=== PATIENT | female | born 1960 | race Caucasian/White ===

== ENCOUNTER 2016-10-09 19:12 | Inpatient (IN) | payer OTHER ==
[~2016-10-09] VITALS: Ht 157.5 cm; Wt 79.4 kg
--- NOTE | ~2016-10-09 | O ---
[place], [place] OPERATIVE NOTE [id number] UNIT #: [id number] ROOM: [facility] DOCTOR: SIDDHARTH MOSLEY MD BIRTHDATE: [birth year] DOS: 10/11/2016 PREOPERATIVE DIAGNOSIS: Right posterior neck abscess. POSTOPERATIVE DIAGNOSIS: Right posterior neck abscess. PROCEDURE: Incision and drainage, neck abscess. SURGEON: Siddharth Mosley MD. ANESTHESIA: General endotracheal. ESTIMATED BLOOD LOSS: 25 mL. PACKING: Iodoform gauze. The patient is a 55-year-old white female diabetic with diabetic ketoacidosis who was admitted with a right neck abscess yesterday. She was being taken to the operating room for incision and drainage of a right posterior neck abscess. OPERATIVE FINDINGS AND PROCEDURE: Following induction of general endotracheal anesthesia, the patient was positioned supine on the OR table and prepped and draped in a standard sterile fashion. She has 7-8 cm abscess in the right posterior neck. An incision of approximately 4 cm was made overlying the abscess mucopurulent material was encountered. Cultures were obtained. Blunt dissection was used to explore the abscess cavity. It was suctioned and copiously irrigated with Ancef infused saline. There was no significant bleeding. Estimated blood loss was only 25 mL. The wound was packed with iodoform gauze and a sterile dressing was applied to the neck. At the end of the case, all instrument and sponge counts were correct. SIDDHARTH MOSLEY MD CM:OPRECORD:OPERATIVE NOTE 1201 [id number] SIDDHARTH MOSLEY MD 10/11/16 1242 interface
--- NOTE | ~2016-10-09 | PR ---
[place], [place] PROGRESS NOTE [id number] UNIT #: [id number] ROOM: 409 DOCTOR: KATHY SANTOS MD BIRTHDATE: [birth year] DOS: 10/13/2016 This patient was seen 48 hours status post incision and drainage of a large right posterior neck abscess. She remains clinically stable. Her wound was packed with Xeroform gauze. PHYSICAL EXAMINATION: VITAL SIGNS: Temperature 97.6, pulse 75, respiratory rate 22, blood pressure 140/58. GENERAL: The patient is awake, alert and oriented x 3. NECK: Shows some serosanguineous drainage into the dressing. The dressing was taken down and the Xeroform gauze packing was removed. The patient does have a large cavity where the abscess was present. IMPRESSION: Stable status post incision and drainage of right neck abscess. RECOMMENDATIONS: Wound care consult. At this point, recommend wet to dry dressing changes every 8 hours. KATHY SANTOS MD CM:PNTRANS 1221 [id number] KATHY SANTOS MD 10/13/16 1250 interface
--- NOTE | ~2016-10-09 | PR ---
[place], [place] PROGRESS NOTE [id number] UN[facility] #: [id number] ROOM: 409 DOCTOR: BUZZ HAJI,ARIES VALDIVIA) BIRTHDATE: [birth year] DOS: UPDATE NOTE At the present time, this patient is clearly competent to make informed healthcare decisions. According to the patient and also her medical chart, she was delirious upon entering the hospital. At the present time, her mental status has improved significantly and she is competent to make informed healthcare decisions. DIAGNOSIS: Delirium, not otherwise specified. Thank you very much for this consult. ARIES GERBER ED.D CM:RIKI 00 [id number] ARIES GERBER ED.D (BOB) 10/13/16 1734 interface
--- NOTE | ~2016-10-09 | CON ---
[place], [place] REPORT OF CONSULTATION NAME: [id number] UNIT #: [id number] ROOM: 409 DOCTOR: ARIES GERBER ED.D (SHEILA) BIRTHDATE: [birth year] DOS: HISTORY OF PRESENT ILLNESS: The patient is a 55-year-old female referred by the hospitalist for competency evaluation. At the present time, this patient is a patient at [facility] in the Intensive Care Unit. I was unable to interview this patient because she was in surgery when I attempted to evaluate her. MEDICAL HISTORY: Her medical history is pertinent for abscesses of neck, insulin-dependent diabetes mellitus, diabetic ketoacidosis, head lice, scabies and seizure disorder. SOCIAL HISTORY: According to her history, she does smoke cigarettes, but does not drink any alcoholic beverages. MEDICATIONS: Her medications include vitamin D, Neurontin, insulin, Synthroid, Tradjenta, Claritin, Glucophage, Trileptal and pravastatin. I spoke with the attending nurse in the Intensive Care Unit, who is caring for this patient. According to nursing staff, the patient requested her daughter make decisions for her regarding any type of surgery. The daughter did approve her surgery to address her abscess on her neck and gave consent. I will reevaluate this patient next week; however, since she already wanted her daughter to make informed healthcare decisions most likely that will be her decision, but I will follow up on this case. According to the chart and nursing staff, this patient was in quite compromised physical condition and there were concerns about her home situation. Case management will be following up on her home situation. DIAGNOSES: 1. Mild neurocognitive disorder. 2. Depressive disorder, not otherwise specified. Thank you very much for this consultation. ARIES GERBER ED.D CM:CONSTR:REPORT OF CONSULTATION 1341 10/12/16 1129 interface
--- NOTE | ~2016-10-09 | CON ---
[place], [place] REPORT OF CONSULTATION NAME: SOUMYA TONEY UNIT #: [id number] [facility] DOCTOR: CHANTALE SOSA MD BIRTHDATE: [birth year] DOS: 10/15/2016 HISTORY OF PRESENT ILLNESS: This 56-year-old female who was admitted to the hospital with multiple issues including DKA and cellulitis to the lateral posterior right neck. I was called to see her because of unresponsive state. She had had episodic ventricular tachycardia, and it was thought that she had had a cardiac arrest. The nurse reported that she heard the patient went into the room to find her sitting on the commode extended and convulsion. The nurse called for assistance, and the patient was lowered to the floor to avoid injury. The seizure activity had just stopped when I arrived to evaluate the patient. She was somnolent, but opened her eyes to name. The nursing staff and the respiratory therapist were able to roll the patient on to a sheet and lift her on to the bed. She had been incontinent of urine. She was unable to provide any information, but stated that she was all right. The seizure activity lasted approximately 3 minutes per the nurse. She does have a history of seizures, but there was no documented seizure medication. PHYSICAL EXAMINATION: GENERAL: On examination, she was somnolent, arouse easily and was cooperative. There were no palpable areas of tenderness or swelling to the head. No rigidity in the neck. No evidence of tongue bite, and no facial erythema or contusions, and there was an area of cellulitis and abscess on the right posterior lateral neck. CHEST: Symmetrical, nontender. LUNGS: Clear to auscultation and percussion. CARDIOVASCULAR: Tachycardic. No murmurs, gallops, rubs or clicks appreciated. ABDOMEN: Slightly rounded, soft, nontender. Bowel sounds present in all 4 quadrants. No areas of ecchymosis. No organomegaly. EXTREMITIES: No deformities. No areas of contusion and no edema. NEUROLOGICAL: The patient was awake, answers simple questions, and there were no lateralizing neurological signs. ASSESSMENT: Resident physician arrived and I advised CT scan of the head and neck because of possibility of injury along with a 12-lead EKG. The 12-lead EKG showed a sinus tachycardia, isolated PAC. No evidence for acute injury. No malignant rhythms. In further investigating, the patient did take Keppra at some point, but it did not appear that she has been receiving Keppra here in the hospital. The resident will clarify that with the record. No further intervention was required by me because the resident attending staff is here and will proceed to transfer the patient to the ICU. CT scan of the head and neck, chest x-ray had already been ordered, and the resident staffs have assumed care. They will notify Dr. Felix, the patient's attending physician, of the incident. I did evaluate the patient after I completed documentation. She was awake, was amnesic of the event, but appeared to be more alert and was more cooperative. The neurological exam except for continued postictal state was nonlateralizing, and there was no further seizure activity. DIAGNOSIS: Seizure. [place], [place] REPORT OF CONSULTATION NAME: SOUMYA TONEY UNIT #: [id number] ROOM: [facility] DOCTOR: CHANTALE SOSA MD BIRTHDATE: [birth year] CHANTALE SOSA MD CM:CONSTR:REPORT OF CONSULTATION 0529 10/15/16 2007 interface
--- NOTE | ~2016-10-09 | CON ---
[place], [place] REPORT OF CONSULTATION NAME: SOUMYA TONEY UNIT #: [id number] ROOM: [facility] DOCTOR: TOM CHUNGKATHY BIRTHDATE: [birth year] DOS: 10/10/2016 ADMITTING PHYSICIAN: Dr. Rebekah Felix. PRIMARY CARE PHYSICIAN: Dr. Sepulveda. CHIEF COMPLAINT: Right neck abscess. HISTORY: The patient is a 55-year-old white female diabetic who was evaluated in the Emergency Department at our hospital with a draining abscesses and cellulitis of the neck. The patient has had redness and swelling for the past week. The patient has been noted to be in diabetic ketoacidosis. She has had some mental status changes. Review of medical records shows that her daughter was called. She stated that her mother was stubborn. The patient has been admitted to the intensive care area, where she has been started on IV Zosyn and IV vancomycin. She is currently on an insulin drip. She has not been responding appropriately. There are reports that she was defecating in her house and stepping in her feces. In addition, the patient was noted to have significant head lice. She has been treated topically in the ICU for that problem. PAST MEDICAL HISTORY: Includes history of seizure, history of encephalopathy, diabetes mellitus, history of sepsis, hirsutism, gait abnormality. PAST SURGICAL HISTORY: Includes history of cholecystectomy. SOCIAL HISTORY: The patient does not drink alcohol or use illicit drugs. FAMILY HISTORY: Unknown. CURRENT MEDICATIONS: Include the following permethrin, Protonix, lorazepam, Geodon, vancomycin, Zosyn, Lovenox, insulin, potassium, Zofran, magnesium, Tylenol. ALLERGIES: The patient has no known drug allergies. RADIOGRAPHIC STUDIES: The patient did have a CT scan of the soft tissues of the neck performed. The scan showed right neck subcutaneous edema with local inflammatory mass primarily involving the right posterior neck. There is suggestion of phlegmon formation. There was mild edema that extends into the deep subcutaneous soft tissues of the right posterior neck. PHYSICAL EXAMINATION: VITAL SIGNS: The patient has temperature of 99.8, tympanic, pulse rate 120, respiratory rate 24, blood pressure 123/59. GENERAL: The patient was awake, while examined in the ICU, very poorly groomed hair, covered with lice nits. NECK: Reveals a right posterior triangle draining abscess. There is an area of 6-7 cm of induration and swelling, which is firm and very tender. The [place], [place] REPORT OF CONSULTATION NAME: SOUMYA TONEY UNIT #: [id number] ROOM: [facility] DOCTOR: KATHY SANTOS MD BIRTHDATE: [birth year] cavity and oropharynx is unremarkable. LABORATORY STUDIES: White blood cell count 14.8, hemoglobin 14, PT 10.4. Glucose 417. IMPRESSION: 1. Severe right posterior triangle cervical abscess with drainage and cellulitis. 2. Diabetic ketoacidosis. 3. Head lice. PLAN: The patient is currently being stabilized in the ICU. Her osmolar gap is closing. She is on an insulin drip. She is on appropriate antibiotic therapy with Zosyn and vancomycin at this time. Cultures are pending. In addition, a Psychiatry consult is pending. We discussed the case with the operating room and the ICU nurses. Plan is to take the patient to the operating room tomorrow morning after further stabilization in the ICU. She will undergo exploration of the wound with incision and drainage. KATHY SANTOS MD CM:CONSTR:REPORT OF CONSULTATION 180 10/10/16 184 interface
--- NOTE | ~2016-10-09 | PR ---
[employer] [employer], [place] PROGRESS NOTE NAME: SOUMYA TONEY [facility] #: [id number] UNIT #: [id number] ROOM: 402 DOCTOR: HOWARD PRICE MD BIRTHDATE: [birth year] DOS: 10/14/2016 SUBJECTIVE: Soumya Toney was seen at her bedside today on 10/13/2016 for followup of atrial and ventricular arrhythmias. She is a 56-year-old woman with a history of diabetes and seizure disorder, which she believes has been present for at least five years. She presented with an abscess in her neck. This was treated with incision and drainage on 10/11/2016. She was also on diabetic ketoacidosis on admission and therefore was observed in the Intensive Care Unit on the evening of 10/11/2016. She did have several episodes of nonsustained wide complex tachycardia. The monitor strips did demonstrate monomorphic ventricular tachycardia. Her potassium was 3.2 and magnesium was 1.6. These were replaced and her arrhythmias improved. She was asymptomatic. Since yesterday, she has had one more 5 beat run of wide complex tachycardia at 10:00 this morning without symptoms. She did have a short run of supraventricular tachycardia last evening. She denies any chest pain or palpitations. She denies orthopnea or PND. She denies any fevers or chills. PHYSICAL EXAMINATION: VITAL SIGNS: On exam today, her pulse is 77 and regular, blood pressure is 116/69. She is afebrile. She weighs 79.4 kilograms with a body mass index of 32. NECK: Supple. She does have a bandage over her right posterior neck. Carotids are full. LUNGS: Respirations are unlabored. Her chest is clear to auscultation and percussion. HEART: Has a regular rhythm with a fourth heart sound, but no third heart sound or murmur. The PMI is not displaced. ABDOMEN: Obese, but otherwise benign. EXTREMITIES: Showed no edema. LABORATORY DATA: White count today is 5800, hemoglobin 11.4. Sodium 141, potassium 3.9, BUN 6, creatinine 0.43, calcium is 8.5, magnesium is on the lower side of normal at 1.7. Her bacterial cultures are positive for Staphylococcus aureus. This is from her abscess. IMPRESSION: 1. Nonsustained ventricular tachycardia, most likely this was from her electrolyte abnormalities and diabetic ketoacidosis. She has no signs of acute myocardial infarction or structural heart disease. 2. Short run of SVT. 3. Type 2 diabetes mellitus. 4. Cellulitis of the right neck growing Staphylococcus aureus. 5. The patient reportedly had head lice on admission. 6. History of seizure disorder. PLAN: We will check an echocardiogram within the next 24 hours for left [employer], [place] PROGRESS NOTE NAME: SOUMYA TONEY UNIT #: [id number] ROOM: 402 DOCTOR: DEE CHUNG,HOWARD BIRTHDATE: [birth year] ventricular function. I have also added oral magnesium as a supplement. She does have several risk factors for coronary artery disease and since she is having recurrent albeit brief episodes of arrhythmia, we likely will do a pharmacologic stress test once her other medical problems have been corrected. I thank the hospitalist physicians for asking our advice regarding her care. HOWARD PRICE MD CM:PNTRANS 1647 [id number] HOWARD PRICE MD 11/20/16 1513 interface
--- NOTE | ~2016-10-09 | PR ---
[place], [place] PROGRESS NOTE NAME: SOUMYA TONEY [facility] #: [id number] UNIT #: [id number] ROOM: [facility] DOCTOR: HOWARD PRICE MD BIRTHDATE: [birth year] DOS: 10/15/2016 CARDIOLOGY PROGRESS NOTE SUBJECTIVE: The patient was seen at her bedside in the intensive care unit today, 10/15/2016. She is a 56-year-old woman who presented to the hospital with a right neck abscess and diabetic ketoacidosis associated with electrolyte abnormalities. Since she has been in the hospital, she has had runs of nonsustained ventricular tachycardia. An echocardiogram done on 10/14/2016 showed normal left ventricular size, wall thickening and systolic function with normal diastolic function. There were no valve abnormalities present. The study was felt to be entirely normal. The patient was scheduled to have a pharmacologic stress test this morning in order to make sure she did not have an ischemic substrate for her nonsustained ventricular tachycardia. She did, however, develop a seizure and was transferred to the Intensive Care Unit. At present time, she seems somewhat confused, but is moving all extremities. She has no recollection of the event. She complains of feeling "sore all over". I reviewed the monitor strips that were available. Unfortunately, the strips from the time of the seizure and the time leading up to the seizure are not currently available in the monitor computer; however, according to verbal reports from the nurses and the strips that are available, she only had sinus rhythm and sinus tachycardia prior to the seizure. She did not have sustained rapid ventricular fibrillation or ventricular tachycardia prior to the seizure event. PHYSICAL EXAMINATION: VITAL SIGNS: Today, her pulse is 84 and regular, blood pressure 149/72. She is afebrile. She weighs 79.4 kilograms with a body mass index of 32. NECK: Supple. She does have a dressing in place. LUNGS: Respirations are unlabored. Her chest is clear to auscultation and percussion. She does have some anterior chest wall tenderness. There is no presacral edema. HEART: Regular rhythm with a soft S4 gallop, but no S3 or significant murmur. ABDOMEN: Soft and normally active. EXTREMITIES: Showed no edema. Her right leg seems to be foreshortened and externally rotated, but she states it is not tender. LABORATORY DATA: Hemoglobin today is 14 with a hematocrit of 43.6. There is 7700 white cells and 350,000 platelets present. INR is 1.0. Troponin level this morning was normal. Electrolytes this morning showed a sodium of 139, potassium 4.2, chloride 102, CO2 of 21, BUN 9 and creatinine 0.67. Sugar was 282. IMPRESSION: 1. Nonsustained ventricular tachycardia. Workup is still in progress. The patient does not have obvious structural disease; however, an ischemia substrate for her ventricular tachycardia has not yet been ruled out. 2. Type 2 diabetes mellitus. 3. Cellulitis of the right neck, which is growing Staphylococcus aureus. [place], [place] PROGRESS NOTE NAME: SOUMYA TONEY UNIT #: [id number] ROOM: [facility] DOCTOR: HOWARD PRICE MD BIRTHDATE: [birth year] 4. Diabetic ketoacidosis. 5. History of seizure disorder with seizure this morning. PLAN: The patient has been evaluated in the Intensive Care Unit. We will continue to follow her with her other physicians. Effort should be made to continue to manage her electrolytes. If there are no more problems, we will plan on doing her pharmacologic stress test on the morning of 10/16/2016. I thank the hospitalist physicians for asking our advice regarding her care. HOWARD PRICE MD CM:PNTRANS [id number] [id number] HOWARD PRICE MD 10/15/16 6607 interface
--- NOTE | ~2016-10-09 | O ---
[place], [place] OPERATIVE NOTE NAME: SOUMYA TONEY UNIT #: [id number] ROOM: [facility] DOCTOR: RYLEY CHUNG,RAMON BIRTHDATE: [birth year] DOS: PROCEDURE: Today's procedure part of investigation of GI bleed is panendoscopy. PREMEDICATION: Versed and Diprivan. SCOPE: Olympus forward-viewing gastroscope Q10 video. REPORT: After putting the patient in supine position, scope was introduced. Thereafter, under direct visualization, I advanced through the length of esophagus into gastric pouch into duodenal bulb. There is no evidence of ulceration, hemangioma, angiodysplastic lesions or any source of bleeding in upper GI tract. Scope was withdrawn. No biopsies obtained. Simultaneously, deep rectal examination while the patient was sedated was done. There was no evidence of melanotic stool. The patient tolerated the procedure well. IMPRESSION: Gastritis. PLAN AND DISCUSSION: Protonix p.o. 40 mg daily would suffice. Regular diet would suffice. Status post right neck abscess drainage and antibiotic management and clinical reassessment. Consultation in detail has been already dictated. RAMON HEDRICK MD CM:OPRECORD:OPERATIVE NOTE 1221 0826 RAMON HEDRICK MD 10/12/16 0825 interface
--- NOTE | ~2016-10-09 | CON ---
[place], [place] REPORT OF CONSULTATION NAME: SOUMYA TONEY UNIT #: [id number] ROOM: [facility] DOCTOR: SELWYN BrownleeNENA BIRTHDATE: [birth year] DOS: 10/14/2016 WOUND CARE CONSULTATION HISTORY OF PRESENT ILLNESS: This is a 56-year-old female with diabetes who was admitted to the Emergency Room Department for a draining abscess of the right neck. Apparently, she was noted to be in DKA upon admission with some mental status changes. She was started empirically on IV Zosyn and vancomycin as well as an insulin drip for her DKA. She was noted to have a history of some mental status changes, not behaving appropriately. There were reports that her home situation was unhygienic. Apparently, there are reports that she was defecating in her house and stepping in feces. She was also noted to have severe significant problem with head lice as well. She was seen by ENT and underwent I and D on the . The neck abscess was located in the right posterior triangle. The wound was noted to be quite large after incision and drainage. Therefore, Wound Care has been consulted. She also had problems with nonsustained ventricular tachycardia during her hospitalization here, which is being managed by Cardiology. PAST MEDICAL HISTORY: Significant for type 2 diabetes, on insulin, history of a seizure disorder, history of cholecystectomy, hypothyroidism, status post repair of right leg fracture about a year ago with open reduction and internal fixation. Past medical history also include DKA, head lice, scabies, and seizure disorder. SOCIAL HISTORY: She smokes cigarettes, but does not drink alcohol. She lives with her daughter. ALLERGIES: No known drug allergies. CURRENT MEDICATIONS: Are as follows, mag oxide 400 p.o. b.i.d., Percocet q. 6 p.r.n., Naprosyn 375 t.i.d., morphine 2 mg IV q. 6 hours p.r.n., vancomycin 1250 per pharmacy dosing, Benadryl 25 q. 6 hours p.r.n., Humalog sliding scale, Pravachol 10 mg p.o. daily, Claritin 10 mg p.o. daily, vitamin D 50,000 units daily, levothyroxine 25 daily plus 112 mcg daily, Neurontin 100 t.i.d., pantoprazole 40 mg IV daily, enoxaparin 40 daily, Zofran 4 mg p.r.n. REVIEW OF SYSTEMS: Currently, she just complains of discomfort near the wound whenever the dressing is being changed. She tends to want to reach her hand near the dressing site. She does have a bordered gauze holding some packing in place at this time. There is a lot of gaps with the adhesive around the area and it is also attached to her hair. She offers no specific complaints regarding chest pain, shortness of breath, fevers or chills, nausea or vomiting or diarrhea. PHYSICAL EXAMINATION: VITAL SIGNS: She is afebrile, pulse is 80, respirations 18, blood pressure is 122/57. She is in no acute distress. The wound is quite large, gaping wound, approximately 7 to 8 cm diagonal in length with approximately 4 to 5 cm in width and approximately 2 to 3 cm in depth. There is some undermining at the [address] [place] [address] REPORT OF CONSULTATION NAME: SOUMYA TONEY UNIT #: [id number] ROOM: [facility] DOCTOR: NENA SAMANO M.D. BIRTHDATE: [birth year] o'clock position noted. There is exposed muscle and still some surrounding cellulitis and induration noted. The rest of her examination: LUNGS: Fairly clear. CARDIOVASCULAR: S1, S2, regular rate and rhythm. ABDOMEN: Soft. EXTREMITIES: There is no edema. LABORATORY DATA: Today show her bacterial culture grew Staph aureus that was resistant to penicillin and clindamycin. Her white count is down to 5.8. Her hemoglobin is 11.4, hematocrit is 33.7, platelets are 255. Her BUN is 6, creatinine is 0.3, glucose is 260, bicarb is 26. Albumin is low at 2.4, protein is low at 6. ASSESSMENT AND PLAN: Very large open wound of the neck secondary to an abscess with surrounding cellulitis. I would try to use a loosely packed Aquacel Ag rope for now and have it keep it covered with a bordered Optifoam. I did put a 3 x 3 foam there. I think that would fit nicely. I am concerned that since it is such a large open area that she will definitely need either home health to come in and help her or see if she is a candidate for alf. I do not think she is going to be able to manage dressings on her own at this point. I would recommend followup in the Wound Clinic once she is medically stable. NENA SAMANO MD CM:CONSTR:REPORT OF CONSULTATION 1603 10/15/16 0922 interface
--- NOTE | ~2016-10-09 | PR ---
[place], [place] PROGRESS NOTE NAME: SOUMYA TONEY [facility] #: [id number] UNIT #: [id number] ROOM: 402 DOCTOR: HOWARD PRICE MD BIRTHDATE: [birth year] DOS: 10/16/2016 CARDIOLOGY PROGRESS NOTE SUBJECTIVE: The patient was seen in the Intensive Care Unit today, 10/16/2016. She tells me that she feels well. She denies any fevers or chills. She denies any chest pain or palpitations. Her last recorded episode of ventricular tachycardia was at 1700 yesterday, 10/15/2016. The patient was scheduled to have a pharmacologic stress test today. She was very resistant to having the study done, but eventually did accept having the radioisotope injected. She was brought downstairs, but refused to have imaging performed. At that point, she demanded to be taken back upstairs and no imaging either at rest or at stress was completed. PHYSICAL EXAMINATION: VITAL SIGNS: Today, her pulse is 80 and regular, blood pressure is 130/62. She is afebrile. NECK: Supple. She has a bandage in place over her right posterior neck. LUNGS: Respirations are unlabored. Her chest is clear. HEART: Has a regular rhythm with an S4 gallop. ABDOMEN: Obese, but otherwise benign. EXTREMITIES: Showed no edema. LABORATORY DATA: White count is 8200. Sodium is 144, potassium 4.4, chloride 105, CO2 of 29, BUN 10, and creatinine 0.61. Troponins remained negative. IMPRESSION: 1. Episodes of nonsustained ventricular tachycardia. The patient does not have any obvious structural heart disease and a recent echocardiogram showed normal left ventricular systolic function. Unfortunately, an ischemic substrate for her ventricular tachycardia has not yet been ruled out. The patient was scheduled to have a stress test today, but refused the examination. She feels well now and has not had any arrhythmias in the last 24 hours. 2. Type 2 diabetes mellitus. 3. Cellulitis of the right neck growing Staphylococcus aureus. 4. Diabetic ketoacidosis, present on admission. 5. History of seizure disorder. PLAN: At this point, I would treat her medically with risk factor modification and beta blockers only. We will continue to follow her in the hospital, but unless she changes her mind about testing, no other examination is planned at this time. We thank the hospitalist for asking our advice regarding her care. [place], [place] PROGRESS NOTE NAME: SOUMYA TONEY UNIT #: [id number] ROOM: 402 DOCTOR: HOWARD PRICE MD BIRTHDATE: [birth year] HOWARD PRICE MD CM:PNLINDA [id number] HOWARD PRICE MD 10/17/16 0943 interface
--- NOTE | ~2016-10-09 | CON ---
[place], [place] REPORT OF CONSULTATION NAME: [facility]ONEY [facility] #: [id number] UNIT #: [id number] ROOM: 402 DOCTOR: HARRIET HEDRICK MDELLENDALESILVIO BIRTHDATE: [birth year] DOS: HISTORY OF PRESENT ILLNESS: This is a 55-year-old patient who has presented from home with multiple medical problems, among which has been blood in stool, among which has been right neck abscess, scabies, and lice infestation. The patient has been already addressed. Also the patient with diabetic ketoacidosis. At the time of admission, a panel of blood work has been done. Lactic acid was normal. White blood cell was 14.8, H and H of 14 and 41, neutrophil of 82. INR 1.0. Troponin was within normal limits, ketones 1:16 dilution, magnesium 1.8. Thyroid stimulating hormone is 5.4. Chest x-ray was done and chronic changes of lung disease. Comprehensive metabolic panel with a sugar of 417 and sodium of 136. GFR greater than 60. Urinalysis was nearly unremarkable except 2+ glucose in the urine as expected. Drug screening was unremarkable. CT scan of the neck confirmatory of right subcutaneus edema and inflammatory changes and abscess that has been addressed by ENT. Potassium 3.2 yesterday has been addressed and her hemoglobin A1c was 9.8. Basic metabolic panel has been reassessed and workup has been appropriately done. PAST MEDICAL HISTORY: Associated with hirsutism, seizure disorder, diabetes mellitus, encephalopathy, right neck abscess, uncontrolled diabetes mellitus. PAST SURGICAL HISTORY: Cholecystectomy and right neck I and D of abscess. SOCIAL HISTORY: Nonsmoker, non-alcohol consumer. FAMILY HISTORY: Unknown. ALLERGIES: No known medications. MEDICATIONS: Medication list has been reviewed. The patient has been chronically on Protonix amongst the others, medication reviewed. REVIEW OF SYSTEMS: Cannot be obtained from the patient. PHYSICAL EXAMINATION: VITAL SIGNS: Preoperatively has been stable. HEENT: Status post intubation, status post right neck I and D of abscess. LUNGS: Respiratory assisted breath. HEART: Normal sinus rhythm, no gallop, no murmur. ABDOMEN: Obese, large, soft. No hepato-organomegaly. EXTREMITIES: No cyanosis, no pedal edema. NEUROLOGIC: Encephalopathic according to the history. IMPRESSION: Diabetic ketoacidosis, gastrointestinal bleed, hypokalemia, uncontrolled diabetes, right neck abscess. OTHER ADJUNCTIVE DIAGNOSES: History of depression, gastritis and nausea. PLAN AND DISCUSSION: In search of her blood in the stool, an endoscopy of upper tract is going to be done. The patient is already status post permethrin [place], [place] REPORT OF CONSULTATION NAME: SOUMYA TONEY UNIT #: [id number] ROOM: 402 DOCTOR: RAMON HEDRICK MD BIRTHDATE: [birth year] treatment in ICU and at the present time intubated. We will proceed with endoscopic assessment. Thank you very much indeed. RAMON HEDRICK MD CM:CONSTR:REPORT OF CONSULTATION 1221 11/20/16 1507 interface
--- NOTE | ~2016-10-09 | CON ---
[place], [place] REPORT OF CONSULTATION NAME: SOUMYA TONEY [facility] #: [id number] UNIT #: [id number] ROOM: 409 DOCTOR: HOWARD PRICE MD BIRTHDATE: [birth year] DOS: 10/12/2016 CARDIOLOGY CONSULTATION REASON FOR CONSULTATION: Nonsustained ventricular tachycardia. HISTORY OF PRESENT ILLNESS: The patient is a 56-year-old woman who does have a history of diabetes mellitus as well as a seizure disorder, which she has had for at least 5 years. She states that she has had a reddened area on her neck for about a week and that this began to drain prompting her coming to the Emergency Room on 10/10/2016. She was seen by Dr. Mosley, who felt that she had an abscess. An incision and drainage was done on 10/11/2016 and she tolerated this well. The patient was also noted to be in diabetic ketoacidosis upon admission and therefore was observed in the Intensive Care Unit. Last evening, she had several episodes of nonsustained wide complex tachycardia. Monitor strips obtained during these episodes showed ventricular tachycardia (monomorphic). An EKG at that time showed no acute ST changes and a normal QT interval. Electrolytes however were abnormal with potassium of 3.2 and a magnesium of 1.6. The patient was given oral potassium and intravenous magnesium and her arrhythmias resolved. The patient was totally asymptomatic during these episodes and specifically denied lightheadedness, syncope, chest pain or palpitations. PAST MEDICAL HISTORY: Includes: 1. Type 2 diabetes mellitus, on insulin. 2. History of "seizure disorder." 3. History of cholecystectomy. 4. Hypothyroidism, on replacement. 5. Status post repair of right leg fracture about 1 year ago with open reduction and internal fixation. HOME MEDICATIONS: Included vitamin D 50,000 units weekly, gabapentin 100 mg t.i.d., Lantus insulin 40 units subcutaneously b.i.d., Keppra 1500 mg twice a day, levothyroxine 137 mcg daily, Tradjenta 5 mg daily, loratadine 10 mg daily, metformin 1000 mg b.i.d., Trileptal 300 mg b.i.d. and pravastatin 10 mg at bedtime. ALLERGIES: The patient has no known drug allergies. FAMILY HISTORY: Negative for early coronary artery disease. REVIEW OF SYSTEMS: The patient denies diplopia or loss of vision. She denies lightheadedness. She does have pain in the right side of her neck associated with some itching at the surgical site. She denies fevers or chills. She denies nausea or vomiting. She denies orthopnea or PND. She denies uncontrolled cough or sputum production. She denies nausea or vomiting. She denies hemoptysis or hematemesis. She denies any blood in her bowels or urine. She denies any change in her bowel or bladder habits. She denies any worsening peripheral edema. She denies any skin rashes or swollen joints. She does have [place], [place] REPORT OF CONSULTATION NAME: SOUMYA TONEY UNIT #: [id number] ROOM: [facility] DOCTOR: HOWARD PRICE MD BIRTHDATE: [birth year] pain in her right knee, which is chronic due to her previous injury and surgical changes. The remainder of the review of systems is negative except as noted above. SOCIAL HISTORY: The patient does not drink alcohol, although she does smoke daily. PHYSICAL EXAMINATION: GENERAL: The patient is an overweight white female who is awake, alert and oriented. VITAL SIGNS: Pulse is 90 and regular, blood pressure is 142/68 and she is afebrile. She weighs 79.4 kilograms with a body mass index of 32. HEENT: Head is normocephalic and atraumatic. Extraocular muscles are intact. Sclerae are clear. Pupils are round and reactive to light. The oral mucosa is moist. Tongue is midline. NECK: Her neck is bandaged, and the right side of the bandage posteriorly is blood soaked. LUNGS: Respirations are unlabored. Her chest has a few crackles at the bases, but is otherwise clear. There is no presacral edema or chest wall tenderness. CARDIOVASCULAR: Her heart has a regular rhythm. She has a fourth heart sound, but no third heart sound or significant murmur. The PMI is not displaced. There is no precordial heave, lift or thrill. ABDOMEN: Soft and normally active without masses, organomegaly or bruits. EXTREMITIES: Showed no edema. Peripheral pulses are markedly diminished in the feet bilaterally. LABORATORY DATA: The electrocardiogram showed no acute changes. Chest x-ray showed a right-sided PICC line. Otherwise, the chest x-ray was unremarkable. Current electrolytes show a sodium of 142, potassium of 4.1, chloride is 109, CO2 is 24, BUN is 5, creatinine is 0.38, GFR is greater than 60. When she was having frequent runs of nonsustained ventricular tachycardia, her potassium was 3.2. Magnesium level today is 1.9, last evening it was 1.6. IMPRESSION: 1. Nonsustained ventricular tachycardia, most likely this was from her electrolyte abnormalities from her diabetic ketoacidosis. Thus far, she is not demonstrating evidence for acute myocardial ischemia or structural heart disease. 2. Type 2 diabetes mellitus. 3. Cellulitis of the neck. 4. The patient reportedly had head lice on admission. 5. History of seizure disorder. PLAN: From a cardiac standpoint, she has ruled out for myocardial infarction and she shows no acute changes on her EKG. Her electrolytes have been corrected and her arrhythmias have resolved. We will repeat electrolytes in the morning and continue to follow them through the weekend. An echocardiogram will be done [place], [place] REPORT OF CONSULTATION NAME: SOUMYA TONEY UNIT #: [id number] ROOM: 409 DOCTOR: HOWARD PRICE MD BIRTHDATE: [birth year] for left ventricular size and function. For now, all I would do is continue to maintain adequate electrolyte balances. If she continues to have significant arrhythmias after her electrolytes have been fully controlled, we can consider stress testing to look for an ischemic basis of her arrhythmias. We thank the hospitalist group for asking our advice regarding her care. HOWARD PRICE MD CM:CONSTR:REPORT OF CONSULTATION 1616 10/13/16 1434 interface
--- NOTE | ~2016-10-09 | PR ---
[place], [place] PROGRESS NOTE [id number] #: [id number] ROOM: 402 DOCTOR: SELWYN BrownleeNENA BIRTHDATE: [birth year] DOS: 10/17/2016 WOUND CARE PROGRESS NOTE SUBJECTIVE: The patient is planning on being discharged to home with home health. She says she still has pain in her neck at times. She offers no other specific complaints. Her vital signs are stable. Blood pressure is 122/69, pulse of 70, respirations 18, temperature 97.8. PHYSICAL EXAMINATION: The dressing was removed. The patient is not very cooperative with letting me examine the wound as before. There is still exposed muscle. There is some fibrin slough present mostly in the periphery of the wound that is not removable or easily removable with a Q-tip. The depth is approximately 1-2 cm. This is an approximation as the patient is very uncooperative with letting me examine the wound. She tends to try to put her hands in the open areas even after repeated attempts to explain to her how this will get the wound contaminated. The wound length is approximately the same at 8 x 4-5 cm in width. The depth seems slightly improved to me, but once again it is really difficult to tell as the patient is very uncooperative with examination. There seems to be slightly less induration around it, but it is still fairly tender to touch. The wound was repacked with the Aquacel Ag Ribbon loosely. Her cultures were positive for Staph aureus sensitive to ciprofloxacin. ASSESSMENT: Large abscess of the right neck, I would continue with Aquacel Ag Ribbon and I would add a little TheraHoney as well to help keep it free from necrotic tissue and I would keep it covered with Optifoam. The Optifoam 3 x 3 seem to fit fairly nicely; however, this was not the one available and staff say it was only the 4 x 4 available, so we used that today, it was a little bit large. Skin prep was used around the periwound as well to help the dressing adhere. PLAN: The patient will follow up in the Wound Clinic upon discharge early next week; however, she is very uncooperative with examination and instructions and I worry that she will not be able to keep this wound clean. Home health apparently has been ordered. Discharge wound orders have been written. [place], [place] PROGRESS NOTE NAME: SOUMYA TONEY UNIT #: [id number] ROOM: 402 DOCTOR: NENA SAMANO M.D. BIRTHDATE: [birth year] NENA SAMANO MD CM:PNLINDA [id number] NENA SAMANO M.D. 11/07/16 0636 interface
[~2016-10-09 19:12] MED LIST: ACTOS45 M1 PO; ACTOS45 MG PO; ALBUTEROL0.09 MG/A2 INH; B12,B-12,B 12500 MC1 PO; BENAZEPRIL20 MG PO; CLARITIN10 MG PO; DULE1ARO INH; GLUCOPHAGE1000 MG PO; JANUVIA100 MG PO; KEPPRA XR750 MG PO; KEPPRA250 MG PO; KEPPRA750 MG PO; LANTUS100 U/ML SC; LEVOXYL0.137 MG PO; LOFIBRA160 MG PO; METFORMIN1000 MG PO; Motrin,Rufen800 MG PO; OMEGA 31000 MG PO; PRAVASTATIN SOD10 MG PO; PREDNICOT20 MG PO; SYNTHROID,LEV150 MCG PO; SYNTHROID,LEVOTHROID PO; TESSALON PERLE200 MG PO; TRAD5TAB1 PO; TRILEPTAL300 MG PO; VITAMIN D5000 IU PO; ZITHROMAX250 MG PO; ZOFRAN ODT4 MG SL
[2016-10-09 19:18] VITALS: BP 149/69
[2016-10-09 19:59] LABS: BASO # 0.1 10*3/uL (0.0-0.1); BASO % 0.4 % (0.0-1.0); EOS # 0.1 10*3/uL (0.0-0.4); EOS % 0.5 % (1.0-4.0); HEMATOCRIT 41.1 % (37.0-47.0); IG # 0.2 10*3/uL (0.0-0.1); LYMPH % 6.5 % (27.0-41.0); MEAN CELL VOLUME 84.7 fl (81.0-99.0); MEAN CORPUSCULAR HGB 28.9 pg (27.0-31.0); MEAN CORPUSCULAR HGB CONC 34.1 g/dl (33.0-37.0); MEAN PLATELET VOLUME 10.1 fl (9.6-12.3); MONO # 1.3 10*3/uL (0.1-1.0); MONO % 8.9 % (3.0-9.0); NEUT # 12.2 10*3/uL (2.3-7.9); NEUT % 82.5 % (47.0-73.0); PLATELET COUNT AUTOMATED 331 10*3/uL (130-400); RED BLOOD COUNT 4.85 10*6/uL (4.10-5.10); RED CELL DISTRI WIDTH 13.6 % (0-14.5); WHITE BLOOD COUNT 14.8 10*3/uL (4.8-10.8)
[2016-10-09 20:00] VITALS: BP 143/71
[2016-10-09 20:08] LABS: PROTHROMBIN TIME 10.4 SECONDS (9.0-12.4)
[2016-10-09 20:22] LABS: MAGNESIUM 1.8 mg/dL (1.5-2.1); THYROID STIM HORMONE (HS) 5.4 uIU/ml (0.358-4.75)
[2016-10-09 22:00] VITALS: BP 134/72
[2016-10-09 23:02] VITALS: BP 140/72
[2016-10-09 23:38] LABS: ALKALINE PHOSPHATASE 110 U/L (45-117); BILIRUBIN, TOTAL 0.5 mg/dl (0.2-1.0); BUN 5 mg/dl (7-24); CARBON DIOXIDE 19 mmol/L (21-32); CHLORIDE 100 mmol/L (98-107); EST GLOM FILT AFRICAN AMERICAN > 60 ml/min; GLUCOSE 417 mg/dL (65-99); POTASSIUM 3.6 mmol/L (3.5-5.1); SGOT/AST 10 IU/L (3-35); SGPT/ALT 17 U/L (12-78); SODIUM 136 mmol/L (136-145); TOTAL PROTEIN 7.6 gm/dL (6.4-8.2)
[2016-10-10] VITALS (11 sets, daily range): BP systolic 110–139; BP diastolic 48–80
[2016-10-10 00:02] LABS: BILIRUBIN NEGATIVE (NEGATIVE); BLOOD TRACE-LYSED (NEGATIVE); CLARITY CLEAR (CLEAR); COLOR YELLOW (YELLOW); GLUCOSE 2+ (NEGATIVE); KETONE 2+ (NEGATIVE); LEUKO ESTERASE NEGATIVE (NEGATIVE); NITRITE NEGATIVE (NEGATIVE); PH 5.5 (5.0-9.0); PROTEIN TRACE (NEGATIVE); UROBILINOGEN 0.2 E.U./dl (0.2-1.0)
[2016-10-10 00:13] LABS: URINE AMPHETAMINES < 1000 (1000ng/ml); URINE BARBITURATES < 200 (200ng/ml); URINE COCAINE < 300 (300ng/ml)
[2016-10-10 00:14] LABS: URINE REFLEX COMMENT NO (NO); WBC 0-2 wbc/hpf (0-5)
[2016-10-10] MEDS ORDERED: TRAD5TAB1 PO (02:30)
[2016-10-10] MEDS ORDERED: VITAMIN D50000 I3 PO (02:30)
[2016-10-10] MEDS ORDERED: LEVOTHYROXINE137 MCG PO (02:31)
[2016-10-10] MEDS ORDERED: NEURONTIN100 MG PO (02:32)
[2016-10-10] MEDS ORDERED: CLARITIN10 MG PO (08:38)
[2016-10-10 14:56] LABS: BASO # 0.1 10*3/uL (0.0-0.1); BASO % 0.5 % (0.0-1.0); EOS # 0.5 10*3/uL (0.0-0.4); EOS % 3.7 % (1.0-4.0); HEMATOCRIT 36.1 % (37.0-47.0); IG # 0.1 10*3/uL (0.0-0.1); LYMPH # 1.7 10*3/uL (1.3-4.4); LYMPH % 13.6 % (27.0-41.0); MEAN CELL VOLUME 86.6 fl (81.0-99.0); MEAN CORPUSCULAR HGB 28.3 pg (27.0-31.0); MEAN CORPUSCULAR HGB CONC 32.7 g/dl (33.0-37.0); MEAN PLATELET VOLUME 10.2 fl (9.6-12.3); MONO # 0.8 10*3/uL (0.1-1.0); MONO % 6.6 % (3.0-9.0); NEUT # 9.4 10*3/uL (2.3-7.9); NEUT % 74.6 % (47.0-73.0); PLATELET COUNT AUTOMATED 290 10*3/uL (130-400); RED BLOOD COUNT 4.17 10*6/uL (4.10-5.10); RED CELL DISTRI WIDTH 13.6 % (0-14.5); WHITE BLOOD COUNT 12.5 10*3/uL (4.8-10.8)
[2016-10-10 15:05] LABS: HEMOGLOBIN 11.8 g/dl (12.0-16.0)
[2016-10-10 15:22] LABS: HEMOGLOBIN A1c 9.8 % (4.8-5.6)
[2016-10-10 15:25] LABS: BUN 6 mg/dl (7-24); CARBON DIOXIDE 22 mmol/L (21-32); CHLORIDE 103 mmol/L (98-107); EST GLOM FILT AFRICAN AMERICAN > 60 ml/min; GLUCOSE 222 mg/dL (65-99); POTASSIUM 2.8 mmol/L (3.5-5.1); SODIUM 139 mmol/L (136-145)
[2016-10-10 15:35] LABS: FREE T4 1.39 ng/dl (0.76-1.46); MAGNESIUM 1.9 mg/dL (1.5-2.1)
[2016-10-10 15:37] LABS: THYROID STIM HORMONE (HS) 9.95 uIU/ml (0.358-4.75)
[2016-10-10 15:52] LABS: FOLIC ACID 9.81 ng/mL (>5.38)
[2016-10-10 20:59] LABS: BUN 6 mg/dl (7-24); CARBON DIOXIDE 21 mmol/L (21-32); CHLORIDE 108 mmol/L (98-107); EST GLOM FILT AFRICAN AMERICAN > 60 ml/min; GLUCOSE 168 mg/dL (65-99); POTASSIUM 3.3 mmol/L (3.5-5.1); SODIUM 142 mmol/L (136-145)
[2016-10-11] VITALS (14 sets, daily range): BP systolic 107–149; BP diastolic 48–80
[2016-10-11 03:09] LABS: BUN 6 mg/dl (7-24); CARBON DIOXIDE 22 mmol/L (21-32); CHLORIDE 110 mmol/L (98-107); EST GLOM FILT AFRICAN AMERICAN > 60 ml/min; GLUCOSE 156 mg/dL (65-99); SODIUM 143 mmol/L (136-145)
[2016-10-11 05:46] LABS: ALBUMIN 2.5 gm/dl (3.1-4.5); ALKALINE PHOSPHATASE 106 U/L (45-117); BILIRUBIN, TOTAL 0.4 mg/dl (0.2-1.0); BUN 6 mg/dl (7-24); CARBON DIOXIDE 21 mmol/L (21-32); CHLORIDE 111 mmol/L (98-107); EST GLOM FILT AFRICAN AMERICAN > 60 ml/min; GLUCOSE 114 mg/dL (65-99); POTASSIUM 3.8 mmol/L (3.5-5.1); SGOT/AST 30 IU/L (3-35); SGPT/ALT 19 U/L (12-78); SODIUM 142 mmol/L (136-145); TOTAL PROTEIN 6.6 gm/dL (6.4-8.2)
[2016-10-11 05:58] LABS: BASO # 0.1 10*3/uL (0.0-0.1); BASO % 0.5 % (0.0-1.0); EOS # 0.5 10*3/uL (0.0-0.4); EOS % 4.8 % (1.0-4.0); HEMATOCRIT 38.7 % (37.0-47.0); HEMOGLOBIN 12.8 g/dl (12.0-16.0); IG # 0.1 10*3/uL (0.0-0.1); LYMPH # 1.2 10*3/uL (1.3-4.4); MEAN CORPUSCULAR HGB 28.8 pg (27.0-31.0); MEAN CORPUSCULAR HGB CONC 33.1 g/dl (33.0-37.0); MEAN PLATELET VOLUME 10.3 fl (9.6-12.3); MONO # 0.8 10*3/uL (0.1-1.0); MONO % 7.6 % (3.0-9.0); NEUT # 8.1 10*3/uL (2.3-7.9); NEUT % 75.5 % (47.0-73.0); PLATELET COUNT AUTOMATED 310 10*3/uL (130-400); RED BLOOD COUNT 4.45 10*6/uL (4.10-5.10); RED CELL DISTRI WIDTH 13.5 % (0-14.5); WHITE BLOOD COUNT 10.7 10*3/uL (4.8-10.8)
[2016-10-11 18:35] LABS: BUN 5 mg/dl (7-24); CARBON DIOXIDE 21 mmol/L (21-32); CHLORIDE 109 mmol/L (98-107); EST GLOM FILT AFRICAN AMERICAN > 60 ml/min; GLUCOSE 324 mg/dL (65-99); MAGNESIUM 1.6 mg/dL (1.5-2.1); POTASSIUM 3.2 mmol/L (3.5-5.1); SODIUM 140 mmol/L (136-145)
[2016-10-12] VITALS: BP 124/59
[2016-10-12 04:00] VITALS: BP 140/56
[2016-10-12 05:55] LABS: BASO # 0.1 10*3/uL (0.0-0.1); BASO % 0.8 % (0.0-1.0); EOS # 0.5 10*3/uL (0.0-0.4); EOS % 7.9 % (1.0-4.0); HEMATOCRIT 34.3 % (37.0-47.0); HEMOGLOBIN 11.2 g/dl (12.0-16.0); LYMPH # 1.5 10*3/uL (1.3-4.4); LYMPH % 23.9 % (27.0-41.0); MEAN CELL VOLUME 87.5 fl (81.0-99.0); MEAN CORPUSCULAR HGB 28.6 pg (27.0-31.0); MEAN CORPUSCULAR HGB CONC 32.7 g/dl (33.0-37.0); MEAN PLATELET VOLUME 10.6 fl (9.6-12.3); MONO # 0.6 10*3/uL (0.1-1.0); MONO % 9.5 % (3.0-9.0); NEUT # 3.6 10*3/uL (2.3-7.9); NEUT % 57.4 % (47.0-73.0); PLATELET COUNT AUTOMATED 263 10*3/uL (130-400); RED BLOOD COUNT 3.92 10*6/uL (4.10-5.10); RED CELL DISTRI WIDTH 13.5 % (0-14.5); WHITE BLOOD COUNT 6.2 10*3/uL (4.8-10.8)
[2016-10-12 06:11] LABS: ALBUMIN 2.2 gm/dl (3.1-4.5); ALKALINE PHOSPHATASE 92 U/L (45-117); BILIRUBIN, TOTAL 0.3 mg/dl (0.2-1.0); BUN 5 mg/dl (7-24); CARBON DIOXIDE 24 mmol/L (21-32); CHLORIDE 109 mmol/L (98-107); EST GLOM FILT AFRICAN AMERICAN > 60 ml/min; GLUCOSE 230 mg/dL (65-99); MAGNESIUM 1.9 mg/dL (1.5-2.1); POTASSIUM 4.1 mmol/L (3.5-5.1); SGOT/AST 17 IU/L (3-35); SGPT/ALT 20 U/L (12-78); SODIUM 142 mmol/L (136-145)
[2016-10-12 08:00] VITALS: BP 134/70
[2016-10-12 12:00] VITALS: BP 142/68
[2016-10-12 16:00] VITALS: BP 138/63
[2016-10-12 20:00] VITALS: BP 108/88
[2016-10-13] VITALS: BP 135/74
[2016-10-13 07:25] LABS: BASO % 0.5 % (0.0-1.0); EOS # 0.5 10*3/uL (0.0-0.4); EOS % 8.2 % (1.0-4.0); HEMATOCRIT 33.7 % (37.0-47.0); HEMOGLOBIN 11.4 g/dl (12.0-16.0); LYMPH # 1.6 10*3/uL (1.3-4.4); MEAN CELL VOLUME 85.1 fl (81.0-99.0); MEAN CORPUSCULAR HGB 28.8 pg (27.0-31.0); MEAN CORPUSCULAR HGB CONC 33.8 g/dl (33.0-37.0); MEAN PLATELET VOLUME 10.5 fl (9.6-12.3); MONO # 0.5 10*3/uL (0.1-1.0); MONO % 9.4 % (3.0-9.0); NEUT # 3.1 10*3/uL (2.3-7.9); NEUT % 53.4 % (47.0-73.0); PLATELET COUNT AUTOMATED 255 10*3/uL (130-400); RED BLOOD COUNT 3.96 10*6/uL (4.10-5.10); RED CELL DISTRI WIDTH 13.2 % (0-14.5); WHITE BLOOD COUNT 5.8 10*3/uL (4.8-10.8)
[2016-10-13 07:46] LABS: ALBUMIN 2.4 gm/dl (3.1-4.5); ALKALINE PHOSPHATASE 87 U/L (45-117); BILIRUBIN, TOTAL 0.3 mg/dl (0.2-1.0); BUN 6 mg/dl (7-24); CARBON DIOXIDE 26 mmol/L (21-32); CHLORIDE 104 mmol/L (98-107); EST GLOM FILT AFRICAN AMERICAN > 60 ml/min; GLUCOSE 260 mg/dL (65-99); MAGNESIUM 1.7 mg/dL (1.5-2.1); POTASSIUM 3.9 mmol/L (3.5-5.1); SGOT/AST 14 IU/L (3-35); SGPT/ALT 16 U/L (12-78); SODIUM 141 mmol/L (136-145)
[2016-10-13 08:00] VITALS: BP 140/58
[2016-10-13 12:00] VITALS: BP 116/69
[2016-10-13 16:00] VITALS: BP 133/68
[2016-10-13 20:00] VITALS: BP 136/64
[2016-10-14] VITALS: BP 124/75
[2016-10-14 08:00] VITALS: BP 122/57
[2016-10-14] MEDS ORDERED: CIPRO500 MG PO (10:47)
[2016-10-14 16:00] VITALS: BP 138/71
[2016-10-14 20:00] VITALS: BP 126/70
[2016-10-15] VITALS: BP 134/63
[2016-10-15 05:48] LABS: BUN 9 mg/dl (7-24); CARBON DIOXIDE 21 mmol/L (21-32); CHLORIDE 102 mmol/L (98-107); EST GLOM FILT AFRICAN AMERICAN > 60 ml/min; GLUCOSE 282 mg/dL (65-99); POTASSIUM 4.2 mmol/L (3.5-5.1); SODIUM 139 mmol/L (136-145)
[2016-10-15 05:50] LABS: MEAN CELL VOLUME 87.9 fl (81.0-99.0); MEAN CORPUSCULAR HGB 28.2 pg (27.0-31.0); MEAN CORPUSCULAR HGB CONC 32.1 g/dl (33.0-37.0); MEAN PLATELET VOLUME 10.6 fl (9.6-12.3); RED BLOOD COUNT 4.96 10*6/uL (4.10-5.10); RED CELL DISTRI WIDTH 13.4 % (0-14.5); WHITE BLOOD COUNT 7.7 10*3/uL (4.8-10.8)
[2016-10-15 06:46] LABS: HEMATOCRIT 43.6 % (37.0-47.0)
[2016-10-15 06:49] LABS: BASOPHIL # 0.1 10*3/uL (0-0.1); BASOPHILS 1 % (0-1); EOSINOPHIL # 0.2 10*3/uL (0-0.4); EOSINOPHILS 3 % (1-4); LYMPHOCYTE # 1.8 10*3/uL (1.3-4.4); METAMYELOCYTES 1 % (0-0); MONOCYTE # 0.7 10*3/uL (0.1-1.0); MYELOCYTES 1 % (0-0); NEUTROPHIL # 4.7 10*3/uL (2.3-7.9); NEUTROPHILS 61 % (47-73); PLATELET SUFFICIENCY NORMAL (NORMAL); TOTAL CELLS COUNTED 100 #CELLS; TOXIC GRANULATION SLIGHT
[2016-10-15 06:50] LABS: PLATELET COUNT AUTOMATED 350 10*3/uL (130-400)
[2016-10-15 08:00] VITALS: BP 149/72
[2016-10-15 12:00] VITALS: BP 137/62
[2016-10-15 16:00] VITALS: BP 113/53
[2016-10-15 20:00] VITALS: BP 116/53
[2016-10-16] VITALS: BP 97/41
[2016-10-16 04:00] VITALS: BP 115/61
[2016-10-16 06:02] LABS: BASO # 0.1 10*3/uL (0.0-0.1); BASO % 0.6 % (0.0-1.0); EOS # 0.4 10*3/uL (0.0-0.4); EOS % 4.4 % (1.0-4.0); HEMATOCRIT 38.8 % (37.0-47.0); HEMOGLOBIN 12.6 g/dl (12.0-16.0); IG # 0.1 10*3/uL (0.0-0.1); LYMPH # 2.2 10*3/uL (1.3-4.4); LYMPH % 27.3 % (27.0-41.0); MEAN CELL VOLUME 87.4 fl (81.0-99.0); MEAN CORPUSCULAR HGB 28.4 pg (27.0-31.0); MEAN CORPUSCULAR HGB CONC 32.5 g/dl (33.0-37.0); MEAN PLATELET VOLUME 10.2 fl (9.6-12.3); MONO # 0.8 10*3/uL (0.1-1.0); MONO % 9.3 % (3.0-9.0); NEUT # 4.7 10*3/uL (2.3-7.9); NEUT % 57.4 % (47.0-73.0); PLATELET COUNT AUTOMATED 374 10*3/uL (130-400); RED BLOOD COUNT 4.44 10*6/uL (4.10-5.10); RED CELL DISTRI WIDTH 13.7 % (0-14.5); WHITE BLOOD COUNT 8.2 10*3/uL (4.8-10.8)
[2016-10-16 06:21] LABS: BUN 10 mg/dl (7-24); CARBON DIOXIDE 29 mmol/L (21-32); CHLORIDE 105 mmol/L (98-107); EST GLOM FILT AFRICAN AMERICAN > 60 ml/min; GLUCOSE 89 mg/dL (65-99); POTASSIUM 4.4 mmol/L (3.5-5.1); SODIUM 144 mmol/L (136-145)
[2016-10-16 08:00] VITALS: BP 110/70
[2016-10-16 16:00] VITALS: BP 130/62
[2016-10-16 20:00] VITALS: BP 118/68
[2016-10-17] VITALS: BP 110/60
[2016-10-17 08:00] VITALS: BP 122/74
[2016-10-17] MEDS ORDERED: CIPRO500 MG PO (11:08)
[2016-10-17 12:00] VITALS: BP 122/69
[2016-10-17] MEDS ORDERED: PROTONIX40 MG PO (16:06)
== END 2016-10-17 17:51 | disposition home or self-care (01) | DRG 871 ==
LOC: ED 19:12 → ICCU 10-10 06:58 → EDHOLD 10-10 06:58 → 4E 10-10 06:58 → 5E 10-10 07:00 → ICCU 10-10 10:21 → 4E 10-12 10:57 → ICCU 10-15 05:19 → 4E 10-17 03:52
PROVIDERS: Emergency Medicine Emergency Medical Services; Family Medicine Adult Medicine; Hospitalist; Internal Medicine; Internal Medicine Cardiovascular Disease; Internal Medicine Hospice and Palliative Medicine
PROC: 0DJ08ZZ Inspection of Upper Intestinal Tract, Via Natural or Artificial Opening Endoscopic (ICD-10-PCS; 2016-10-10)
PROC: 0H94XZZ Drainage of Neck Skin, External Approach (ICD-10-PCS; principal; 2016-10-11)
PROC: 02HV33Z Insertion of Infusion Device into Superior Vena Cava, Percutaneous Approach (ICD-10-PCS; 2016-10-11)
DX: A41.9 Sepsis, unspecified organism (principal); K29.01 Acute gastritis with bleeding; E43 Unspecified severe protein-calorie malnutrition; E13.10 Other specified diabetes mellitus with ketoacidosis without coma; I47.1 Supraventricular tachycardia; D64.9 Anemia, unspecified; B85.0 Pediculosis due to Pediculus humanus capitis; F32.9 Major depressive disorder, single episode, unspecified; L03.221 Cellulitis of neck; L02.11 Cutaneous abscess of neck; B86 Scabies; G40.909 Epilepsy, unspecified, not intractable, without status epilepticus; E66.09 Other obesity due to excess calories; E87.6 Hypokalemia; G31.84 Mild cognitive impairment of uncertain or unknown etiology; Z90.49 Acquired absence of other specified parts of digestive tract; Z79.899 Other long term (current) drug therapy; Z68.32 Body mass index [BMI] 32.0-32.9, adult